=== PATIENT | female | born 1965 | race Two or more races ===

== ENCOUNTER 2023-03-06 06:00 | Day surgery (SDC) | payer OTHER ==
[~2023-03-06 06:00] MED LIST: ADULT ASPIRIN81 MG PO; CLONAZEPAM1 MG PO; MULTIVITA PO; PROTON PO; ZOLOFT PO
[2023-03-06] MEDS ORDERED: TRAM1TAB98 PO (11:05)
[2023-03-06] MEDS ORDERED: MACROBID 100 M100 MG PO (11:05)
== END 2023-03-06 15:40 | disposition home or self-care (01) ==
LOC: CIR.AMB 06:00
PROVIDERS: ATTEND Obstetrics & Gynecology Gynecology
DX: N39.3 Stress incontinence (female) (male) (principal); N36.41 Hypermobility of urethra; Z20.822 Contact with and (suspected) exposure to COVID-19; Z91.013 Allergy to seafood; Z88.0 Allergy status to penicillin
CPT/HCPCS: 57288; C1771